=== PATIENT | female | born 2000 | race African-American/Black ===

== ENCOUNTER 2023-12-12 12:32 | Emergency (ER) | payer MEDICAID ==
[~2023-12-12] VITALS: Ht 165.1 cm; Wt 61.3 kg
[2023-12-12 12:42] VITALS: BP 119/79; PULSE 85; RESP 20; TEMP 98; O2SAT 98
[2023-12-12 12:59] VITALS: BP 133/79; PULSE 89; RESP 18; TEMP 98; O2SAT 98
[2023-12-12] MEDS: KETOROLAC 60 MG/2 ML VIAL IM ONE (14:27)
[2023-12-12 14:34] LABS: APPEARANCE,URINE CLEAR (CLEAR); BILIRUBIN,URINE 1+ (NEGATIVE); BLOOD, URINE NEGATIVE (NEGATIVE); COLOR,URINE YELLOW (YELLOW); LEUKOCYTE ESTERASE ,URINE NEGATIVE (NEGATIVE); NITRITE, URINE NEGATIVE (NEGATIVE); PROTEIN,URINE NEGATIVE (NEGATIVE); UGLUCOSE NEGATIVE (NEGATIVE); UROBILINOGEN,URINE 0.2 EU/dL (0.2 - 1)
[2023-12-12 14:41] LABS: ICTOTEST POSITIVE (NEGATIVE)
[2023-12-12] MEDS ORDERED: IBUP-2213 PO (14:53)
[2023-12-12] MEDS ORDERED: ONDA8TAB87 PO (14:53)
== END 2023-12-12 15:07 | disposition home or self-care (01) ==
LOC: MED 12:32
DX: R10.11 Right upper quadrant pain (principal); R11.0 Nausea; J45.909 Unspecified asthma, uncomplicated; E78.5 Hyperlipidemia, unspecified; Z72.89 Other problems related to lifestyle
CPT/HCPCS: 81003; 81025; 96372; 99283; J1885